=== PATIENT | female | born 1970 | race Caucasian/White ===

== ENCOUNTER → 2017-03-09 14:43 | Outpatient (CLI) | payer BC ==
[2015-02-03 23:06] VITALS: BMI 19.4
[~2017-03-09 14:43] MED LIST: AMBIEN10 MG PO; CARAFATE1 G/10 ML PO; COMPAZINE10 MG PO; DEMEROL50 MG PO; DESERYL100 MG PO; ESTRACE 0.5 MG0.5 MG PO; HYDROCODONE-ACET5 ML PO; LAMICTAL100 MG PO; LAMICTAL200 MG PO; NEXIUM40 MG PO; PEPCID20 MG PO; PHENERGAN25 M1 PO; PHENERGAN25 MG RC; PRILOSEC20 MG PO; RESTORIL15 MG PO; XANAX0.5 MG PO; ZOFRAN ODT4 MG/UDTAB PO
== END | disposition home or self-care (01) ==
LOC: D.MAMMO 10:15
DX: Z12.31 Encounter for screening mammogram for malignant neoplasm of breast (principal)

== ENCOUNTER → 2017-04-08 17:14 | Outpatient (CLI) | payer BC ==
[2015-02-03 23:06] VITALS: BMI 19.4
== END | disposition home or self-care (01) ==
LOC: D.MAMMO 14:00
DX: R92.8 Other abnormal and inconclusive findings on diagnostic imaging of breast (principal)

== ENCOUNTER → 2017-06-02 09:10 | Outpatient (CLI) | payer BC ==
[2015-02-03 23:06] VITALS: BMI 19.4
== END | disposition home or self-care (01) ==
LOC: D.US 09:10
DX: M25.562 Pain in left knee (principal); M71.22 Synovial cyst of popliteal space [Baker], left knee

== ENCOUNTER → 2017-06-12 10:02 | Outpatient (CLI) | payer BC ==
[2015-02-03 23:06] VITALS: BMI 19.4
== END | disposition home or self-care (01) ==
LOC: D.MRI 06-09 09:00
DX: M25.562 Pain in left knee (principal)

== ENCOUNTER → 2017-12-07 12:53 | Outpatient (CLI) | payer BC ==
[2015-02-03 23:06] VITALS: BMI 19.4
== END | disposition home or self-care (01) ==
LOC: D.MRI 12:53
DX: M54.12 Radiculopathy, cervical region (principal)

== ENCOUNTER 2018-04-12 08:00 | Outpatient (CLI) | payer BC ==
[2015-02-03 23:06] VITALS: BMI 19.4
== END 2018-04-12 09:00 | disposition home or self-care (01) ==
LOC: D.MAMMO 08:00
DX: Z12.31 Encounter for screening mammogram for malignant neoplasm of breast (principal)

== ENCOUNTER 2018-07-29 06:18 | Day surgery (SDC) | payer BC ==
[~2018-07-29] VITALS: Ht 177.8 cm; Wt 77.1 kg
--- NOTE | ~2018-07-29 | OP ---
PATIENT NAME: CHET BISHOP MEDICAL RECORD: [id number] :72 LOCATION:[facility] ADMISSION DATE: SURGEON: XAVIER WARNER MD DATE OF OPERATION: 07/29/2018 PREOPERATIVE DIAGNOSES: 1. Posterior anal fissure. 2. Internal hemorrhoids. 3. GERD. POSTOPERATIVE DIAGNOSES: 1. Posterior anal fissure. 2. Internal hemorrhoids. 3. GERD. PROCEDURE: 1. Lateral internal sphincterotomy. 2. PPH stapled hemorrhoidectomy. SURGEON: Xavier Warner MD REPORT OF PROCEDURE: The patient was placed in lithotomy position and the perianal region was prepped and draped in sterile fashion. An anoscope was inserted and a 360 degree inspection was performed. The patient was noted to have some enlarged internal hemorrhoids were extending out causing some bulging of the tissue. The patient did have a posterior anal fissure, which had shrunk in size since the initial evaluation, but was still causing a tightening of the sphincteric musculature. We dilated this up using the multiple sized anoscope. Eventually, we performed a lateral internal sphincterotomy of the internal sphincter muscle with care taken not to injure the external sphincter. This was done on the right side of the anus in a closed fashion with an 11 blade. We released these tight muscles. At this point, we decided to perform a PPH hemorrhoidectomy because of the enlarged internal hemorrhoids. The PPH anoscope was inserted and sutured down on all 4 sides using interrupted 0 silks. A 2-0 Prolene was placed as a pursestring inside the distal rectum. The PPH anoscope was then inserted and tightened down. We then inspected the patient's vaginal wall and saw there was no connection between the vaginal wall and the PPH stapler. We fired the stapler and removed a good core of tissue. There was some bleeding from the posterior aspect of the staple line and this was oversewn with a 2-0 chromic. We then irrigated out the space and saw there was no sign of any active bleeding. At this point, the PPH anoscope was removed. We inspected the area and saw there was some bleeding from the sphincterotomy site. We injected 10 mL of 0.5% lidocaine with epinephrine into the surrounding tissues. A piece of Gelfoam dipped in [place]aine was then placed into the rectum. At this point, the bleeding was noted to have stopped. COMPLICATIONS: None. CONDITION: Stable. ANESTHESIA: General endotracheal and local. BLOOD LOSS: 50 mL. TRANSINT:[id number] Voice Confirmation ID: [id number] DOCUMENT ID: [id number] OPERATIVE REPORT [id number] CHET BISHOP CHRISTIAN MD at 1335 CC: CHELLE COLON [id number] DICTATION DATE: 07/29/18 1133 [employer] OPERATOR: 07/29/18 1218 [id number] [place] [address]
[2018-07-29] MEDS ORDERED: LYRICA25 MG PO (07:18)
[2018-07-29 07:21] LABS: CALC OSMOLALITY 283 mosm/kg (275-300); CALCIUM 8.7 mg/dL (8.5-10.1); CARBON DIOXIDE 27.7 mmol/L (21.0-32.0); CHLORIDE - SERUM 109 mmol/L (98-107); CREATININE - SERUM 0.7 mg/dL (0.6-1.3); GLUCOSE 92 mg/dL (74-106); POTASSIUM - SERUM 3.9 mmol/L (3.5-5.1); SODIUM 143 mmol/L (136-145); UREA NITROGEN 10 mg/dL (7-18); eGFR NON AFRICAN AMERICAN > 90 mL/min (90-120)
[2018-07-29 07:27] LABS: HEMATOCRIT 35.6 % (36.0-48.0); HEMOGLOBIN 11.7 g/dL (12-16); MCHC 32.9 g/dL (31.0-37.0); MCV 94.2 fL (80.0-100.0); MEAN PLATELET VOLUME 8.8 fL (7.4-10.4); RBC 3.78 10x6/uL (4.00-5.40); RDW 13.6 % (11.5-14.5); WBC 4.4 10x3/uL (4.8-10.8)
[2018-07-29 07:31] LABS: PLATELET COUNT 253 10x3/uL (130-400)
[2018-07-29 07:36] VITALS: BP 95/46; Ht 177.8 cm; Wt 77.1 kg
[2018-07-29 07:59] LABS: ANISOCYTOSIS OCC; EOSINOPHILS 9 % (0-7); LYMPHOCYTES 25 % (15-50); MONOCYTES 16 % (2-11); NEUTROPHILS 49 % (40-80); PLATELET ESTIMATE NORMAL
[2018-07-29] MEDS ORDERED: NORCO 10-325 TA1 TAB PO (11:26)
== END 2018-07-29 17:15 | disposition home or self-care (01) ==
LOC: D.OPS 06:18
PROVIDERS: Anesthesiology
DX: K60.2 Anal fissure, unspecified (principal); K64.8 Other hemorrhoids; K21.9 Gastro-esophageal reflux disease without esophagitis; Z01.812 Encounter for preprocedural laboratory examination

== ENCOUNTER → 2019-01-21 11:12 | Outpatient (CLI) | payer BC ==
[2018-07-29 07:36] VITALS: BMI 24.4
[~2019-01-21 11:12] MED LIST changes: +LYRICA25 MG PO; +NORCO 10-325 TA1 TAB PO
== END | disposition home or self-care (01) ==
LOC: D.RAD 11:12
PROVIDERS: ATTEND Family Medicine
DX: M54.2 Cervicalgia (principal)

== ENCOUNTER 2019-04-13 11:00 | Outpatient (CLI) | payer BC ==
[2018-07-29 07:36] VITALS: BMI 24.4
== END 2019-04-13 11:30 | disposition home or self-care (01) ==
LOC: D.MAMMO 11:00
PROVIDERS: ATTEND Nurse Practitioner
DX: Z12.31 Encounter for screening mammogram for malignant neoplasm of breast (principal)

== ENCOUNTER 2020-05-03 18:30 | Outpatient (CLI) | payer BC ==
[2018-07-29 07:36] VITALS: BMI 24.4
== END 2020-05-03 23:59 | disposition home or self-care (01) ==
LOC: D.MAMMO 18:30
PROVIDERS: ATTEND Family Medicine
DX: Z12.31 Encounter for screening mammogram for malignant neoplasm of breast (principal)

== ENCOUNTER → 2020-12-26 07:17 | Outpatient (CLI) | payer BC ==
[2018-07-29 07:36] VITALS: BMI 24.4
== END | disposition home or self-care (01) ==
LOC: D.RAD 07:17
PROVIDERS: ATTEND Family Medicine
DX: R13.10 Dysphagia, unspecified (principal)